=== PATIENT | female | born 1950 | race Caucasian/White ===

== ENCOUNTER 2018-11-09 14:59 | Emergency (ER) | payer MEDICARE, OTHER ==
[2018-11-09 16:39] VITALS: BP 116/76
[2018-11-09] MEDS ORDERED: Ondansetron ODT TAB* 4 MG PO ONE (17:10)
--- NOTE | 2018-11-09 17:19 | UC ---
Nausea/Vomiting/Diarrhea HPI - HPI Summary HPI Summary: 67 year old female with history of diet controlled DM, HLD here with complaint of vomiting. Reports she had 2 episodes of UTI in the past 3 weeks. Patient had hematuria 3 weeks ago and checked in a clinic that showed e.coli. She had another episode of UTI that was treated with second rounds of abx and completed two weeks ago. Today she comes with vomiting that started two nights ago. Had several episodes of NBNB vomiting with no urinary symptoms. No diarrhea, no travel history or sick contacts. - History of Current Complaint Chief Complaint: UCGeneralIllness Stated Complaint: URINARY Time Seen by Provider: 11/09/18 16:31 Hx Obtained From: Patient Onset/Duration: Sudden Onset Timing: Constant Severity Initially: Mild Pain Intensity: 0 Nausea/Vomiting Presence: Vomiting Nausea/Vomiting Duration: 24-36 hours Vomiting Characteristics: Nonbilious Diarrhea Presence: No - Allergies/Home Medications Allergies/Adverse Reactions: Allergies Allergy/AdvReac Type Severity Reaction Status Date / Time No Known Allergies Allergy Verified 11/09/18 16:26 Home Medications: Home Medications Aspirin TAB* [Aspirin 325 MG TAB*] 650 mg PO DAILY PRN 11/09/18 [History Confirmed 11/09/18] Atorvastatin* [Lipitor*] 20 mg PO DAILY 11/09/18 [History Confirmed 11/09/18] diPHENhydraMINE PO* [Benadryl PO 25 MG TAB*] 25 mg PO Q6H PRN 11/09/18 [History Confirmed 11/09/18] diphenhydrAMINE HCl [Benadryl LIQUID 12.5 MG/5 ML] 1 udc PO ONCE PRN 11/09/18 [ History Confirmed 11/09/18] PMH/Surg Hx/FS Hx/Imm Hx - Additional Past Medical History Additional PMH: 67 year old female with history of diet controlled DM, HLD here with complaints of vomiting for 3 days. - Surgical History Surgical History: Yes Surgery Procedure, Year, and Place: Left breast bx--negative. Basal cell carcinomas removed - Social History Alcohol Use: Occasionally Substance Use Type: None Smoking Status (MU): Former Smoker When Did the Patient Quit Smoking/Using Tobacco: 40-50 yrs ago Review of Systems All Other Systems Reviewed And Are Negative: Yes Constitutional: Positive: Negative Skin: Positive: Negative Eyes: Positive: Negative Respiratory: Positive: Negative Gastrointestinal: Positive: Vomiting Neurovascular: Positive: Negative Musculoskeletal: Positive: Negative Is Patient Immunocompromised?: No Physical Exam Triage Information Reviewed: Yes Appearance: Well-Appearing, No Pain Distress Vital Signs: Initial Vital Signs Temp 37.0 C 11/09/18 16:30 Pulse 67 11/09/18 16:30 Resp 15 11/09/18 16:30 BP 116/76 11/09/18 16:30 Pulse Ox 100 11/09/18 16:30 Vital Signs Reviewed: Yes Eye Exam: Normal ENT Exam: Normal Neck exam: Normal Respiratory Exam: Normal Cardiovascular Exam: Normal Abdominal Exam: Normal Musculoskeletal Exam: Normal Neurological Exam: Normal Psychological Exam: Normal Skin Exam: Normal Naus/Vom/Diarrhea Course/Dx - Course Course Of Treatment: Patient UA and blood glucose wnl. Symptomatic treatment with zofran. Will have patient follow up with PMD. - Differential Dx/Diagnosis Differential Diagnoses - Female: Gastroenteritis (Viral), Vomiting, Cystitis Provider Diagnosis: Vomiting Condition At Discharge: Good Discharge - Sign-Out/Discharge Documenting (check all that apply): Patient Departure All imaging exams completed and their final reports reviewed: Yes - Discharge Plan Condition: Good Disposition: HOME Prescriptions: Ondansetron HCl [Zofran] 4 mg PO Q6HR #12 tablet MDD 3 Patient Education Materials: Acute Nausea and Vomiting (ED) Referrals: Henry Will MD [Primary Care Provider] - Additional Instructions: Please follow up with your primary care doctor. - Billing Disposition and Condition Condition: GOOD Disposition: Home
== END 2018-11-09 17:28 | disposition home or self-care (01) ==
LOC: UCCORT 14:59
DX: R11.10 Vomiting, unspecified (principal); Z87.891 Personal history of nicotine dependence
CPT/HCPCS: 81003; 99212; A9270-GY; G0463